=== PATIENT | female | born 1940 | race American Indian/Alaskan Native ===

== ENCOUNTER 2017-06-29 06:39 | Inpatient (IN) | payer MEDICARE ==
[2017-06-29] MEDS ORDERED: NACL 0.9% 500 ML 500 ML IV SCH (08:00)
[2017-06-29] MEDS ORDERED: CALAN ONE (08:16)
[2017-06-29] MEDS ORDERED: HEPARIN 10,000 UNITS/10 ML ONE (08:16)
[2017-06-29] MEDS ORDERED: XYLOCAINE 2% INFILTRATI ONE (08:16)
[2017-06-29] MEDS ORDERED: HEPARIN/NS 5000 UNIT/500ML(CATH LAB) 1,000 ML IR ONE (08:16)
[2017-06-29] MEDS ORDERED: NITROGLYCERIN SYRINGE 0 ML ONE (08:17)
[2017-06-29] MEDS ORDERED: VERSED ONE (08:18)
[2017-06-29] MEDS ORDERED: SUBLIMAZE ONE (08:18)
[2017-06-29] MEDS: APRESOLINE ONE ×2 (09:07→09:20)
[2017-06-29] MEDS ORDERED: NACL 0.9% 50 ML ONE (09:10)
[2017-06-29] MEDS ORDERED: WATER FOR INJ (PF) 10 ML ONE (09:11)
[2017-06-29] MEDS: ANGIOMAX IV ONE ×2 (09:16→09:21)
[2017-06-29] MEDS ORDERED: NORMODYNE IV ONE (09:28)
[2017-06-29] MEDS ORDERED: PLAVIX ONE (09:49)
[2017-06-29] MEDS ORDERED: ALUM-MAG HYDROX-SIMETH 200-200-20MG/5ML ONE ×2 (09:54→16:34)
[2017-06-29] MEDS ORDERED: ZOFRAN IV PRN (09:56)
[2017-06-29] MEDS ORDERED: NON-FORMULARY (Enalapril Maleate [Vasotec] 20 MG) PO SCH (10:00)
[2017-06-29] MEDS ORDERED: NACL 0.9% 1000 ML 1,000 ML IV SCH (10:00)
[2017-06-29] MEDS ORDERED: NON-FORMULARY (Esomeprazole Magnesium [Nexium] 20 MG) PO SCH (10:00)
[2017-06-29] MEDS ORDERED: D50W (25GM) Syringe IV PRN (10:01)
--- NOTE | 2017-06-29 10:22 | Cardiac Catherization Report ---
PROCEDURE: Peripheral angiogram with SALES ASSOCIATE FISHING of the left SFA. CLINICAL CONFIRMATION: This is a 77-year-old -[place] female with hypertension, diabetes, cholesterol, insulin-dependent, has been having claudication symptoms refractory to medical therapy with ultrasound shows monophasic flow in bilateral SFAs. The patient with profound left leg claudication more than the right. Moderate sedation was performed. Moderate sedation start time was 8:55 and finish at 9:55, so 60 minutes of moderate supervised sedation, 0.5 mg of Versed given, 25 mcg of fentanyl was given. PROCEDURE DETAILS: Peripheral angiogram was done via the right common femoral artery, sterile technique, local anesthesia, 5-Malawian groin sheath inserted. Using a rim catheter, did a peripheral angiogram showed left common iliac, external iliac, and internal iliac and AUTOMOBILE SALES CONSULTANT patent. I then used Advantage wire and placed a catheter in the AUTOMOBILE SALES CONSULTANT and angiogram revealed left profunda patent, left SFA proximal and distal diffuse with focal areas of 80% noted. Popliteal patent with single vessel runoff. Peroneal, anterior tibial and posterior tibial 100%. Using the same rim catheter, right common iliac patent, right external iliac patent, right internal iliac patent, right SFA, proximal, mid patent, distal narrowed down to 90% at the adductor canal. Right popliteal patent with single vessel runoff, peroneal and posterior tibial and anterior tibial both 100%, so SALES ASSOCIATE FISHING of the left SFA using over the rim catheter was taken off and over the Advantage wire, placed the destination 7-Malawian 45 cm into the left common femoral artery. Then, ballooned with a drug coating balloon, IN.PACT Admiral 5.0 x 150 from proximally, distally and inflated at 10 atmospheres for 3 minutes. Repeat angiogram showed good angiographic result, reduced stenosis less than 10% with no significant dissection noted and reduced stenosis from 80% down to less than 10% with increased flow into the peroneal artery. Multiple angiogram confirmed good angiographic result. A 7-Malawian distal sheath was removed over wire and 7-Malawian groin sheath sewn in. No hematoma, no bleeding. SUMMARY: 1. Successful SALES ASSOCIATE FISHING of the left SFA proximally and distally with a drug-coated balloon 6.0 x 150 at 10 atmospheres, patient has single vessel runoff, peroneal is patent with anterior tibial, posterior tibial, both 100%. 2. Bilateral common iliacs patent, bilateral internal and external iliacs patent. 3. Right SFA proximal and mid SFA patent, but distally 90% with single vessel runoff, peroneal is patent, with anterior tibial and posterior tibial 100%. 4. Post-SALES ASSOCIATE FISHING care and continue dual antiplatelet therapy and we will consider SALES ASSOCIATE FISHING of the right SFA if symptomatic. JOB# [id number] THANG/DONNA VALENZUELA
[2017-06-29] MEDS ORDERED: APRESOLINE IV PRN (10:29)
[2017-06-29] MEDS ORDERED: ULTRAM ONE ×2 (11:01→11:38)
[2017-06-29] MEDS ORDERED: TYLENOL PO PRN (11:30)
[2017-06-29] MEDS ORDERED: ULTRAM PO PRN (11:30)
[2017-06-29] MEDS ORDERED: HumaLOG SUB-Q ONE (11:44)
[2017-06-29] MEDS: HumaLOG SUB-Q SCH ×2 (11:48→22:50)
[2017-06-29] MEDS: BABY ASPIRIN PO SCH (15:02)
[2017-06-29] MEDS ORDERED: APRESOLINE ONE (15:46)
[2017-06-29] MEDS: PROTONIX PO SCH (16:11)
[2017-06-29] MEDS ORDERED: ALUM-MAG HYDROX-SIMETH 200-200-20MG/5ML PO PRN (16:29)
[2017-06-29 17:05] LABS: Creatine Kinase MB 2.4 ng/mL (0.0-4.0)
[2017-06-29] MEDS: ALDACTONE PO SCH (18:21)
[2017-06-29] MEDS: THALITONE PO SCH (18:22)
[2017-06-29] MEDS: ZESTRIL PO SCH ×2 (18:23→22:49)
[2017-06-29] MEDS ORDERED: LANTUS SUB-Q SCH (22:00)
[2017-06-29] MEDS ORDERED: NON-FORMULARY (Insulin Glargine,Hum.Rec.Anlog [Lantus Solostar] 50 UNITS) SQ SCH (22:00)
[2017-06-30 05:49] LABS: Basophils % (Auto) 0.7 % (0.0-1.8); Eosinophils # (Auto) 0.2 K/mm3 (0.0-0.4); Eosinophils % (Auto) 3.5 % (0.0-4.3); Hematocrit 32.8 % (30.3-42.9); Hemoglobin 11.2 gm/dl (10.1-14.3); Lymphocytes # (Auto) 1.8 K/mm3 (1.2-5.4); Lymphocytes % (Auto) 29.6 % (13.4-35.0); Mean Corpuscular HGB Conc 34 % (30-34); Mean Corpuscular Hemoglobin 28 pg (28-32); Mean Corpuscular Volume 82 fl (79-97); Monocytes # (Auto) 0.5 K/mm3 (0.0-0.8); Monocytes % (Auto) 7.4 % (0.0-7.3); Platelet Count 234 K/mm3 (140-440); Red Blood Count 3.98 M/mm3 (3.65-5.03); Red Cell Distribution Width 13.8 % (13.2-15.2)
[2017-06-30 06:08] LABS: Calcium 8.9 mg/dL (8.4-10.2)
[2017-06-30] MEDS: AMARYL PO SCH ×2 (08:01→09:25)
[2017-06-30] MEDS: HumaLOG SUB-Q SCH ×2 (08:01→08:03)
[2017-06-30] MEDS: ALDACTONE PO SCH (09:25)
[2017-06-30] MEDS: BABY ASPIRIN PO SCH (09:26)
[2017-06-30] MEDS: PROTONIX PO SCH (09:27)
[2017-06-30] MEDS: ZESTRIL PO SCH (09:27)
[2017-06-30] MEDS: THALITONE PO SCH (09:27)
[2017-06-30] MEDS ORDERED: PLAVIX PO SCH (10:00)
[2017-06-30] MEDS ORDERED: PLETAL PO SCH (10:00)
--- NOTE | 2017-06-30 11:07 | Short Stay Summary ---
<SUE TENORIO - Last Filed: 06/30/17 11:03> Short Stay Documentation Date of service: 06/30/17 - History H&P: obtained from office - Allergies and Medications Current Medications: Allergies No Known Allergies Allergy (Unverified 06/29/17 06:39) Home Medications Medication Instructions Recorded Confirmed Last Taken Type Aspirin EC [Aspirin Enteric Coated 81 mg PO QDAY 06/29/17 06/29/17 06/28/17 History TAB] 81mg Chlorthalidone 25 mg PO DAILY 06/29/17 06/29/17 06/28/17 History 25mg Cilostazol [Pletal] 100 mg PO BID 06/29/17 06/29/17 06/28/17 History 100mg Enalapril Maleate [Vasotec] 20 mg PO BID 06/29/17 06/29/17 06/28/17 History 20mg Esomeprazole Magnesium [Nexium] 20 mg PO DAILY 06/29/17 06/29/17 06/28/17 History 20mg Glimepiride [Amaryl] 4 mg PO BID 06/29/17 06/29/17 06/28/17 History 4mg Insulin Aspart [NovoLOG Flexpen] 12 - 17 units SQ TID 06/29/17 06/29/17 History 15units Insulin Glargine,Hum.rec.anlog 50 units SQ HS 06/29/17 06/29/17 06/27/17 History [Lantus Solostar] 50units Spironolactone [Aldactone] 25 mg PO QDAY 06/29/17 06/29/17 06/28/17 History 25mg Active Medications Acetaminophen (Tylenol) 650 mg PO Q4H PRN PRN Reason: Pain MILD(1-3)/Fever >100.5/ZHENG Al Hydrox/Mg Hydrox/Simethicone (Alum-Mag Hydrox-Simeth [id number]/5ml) 15 ml PO Q4H PRN PRN Reason: Indigestion Last Admin: 06/29/17 16:36 Dose: 15 ml Aspirin (Baby Aspirin) 81 mg PO QDAY [facility] Last Admin: 06/30/17 09:26 Dose: 81 mg Chlorthalidone (Thalitone) 25 mg PO DAILY [facility] Last Admin: 06/30/17 09:27 Dose: 25 mg Cilostazol (Pletal) 100 mg PO BID [facility] Last Admin: 06/30/17 09:27 Dose: Not Given Clopidogrel Bisulfate (Plavix) 75 mg PO QDAY [facility] Last Admin: 06/30/17 09:26 Dose: 75 mg Dextrose (D50w (25gm) Syringe) 50 ml IV PRN PRN PRN Reason: Hypoglycemia Glimepiride (Amaryl) 4 mg PO BIDDIAB [facility] Last Admin: 06/30/17 09:25 Dose: 4 mg Hydralazine HCl (Apresoline) 10 mg IV Q4HR PRN PRN Reason: Hypertension Last Admin: 06/29/17 15:48 Dose: 10 mg Insulin Glargine (Lantus) 50 units SUB-Q QHS [facility] Last Admin: 06/29/17 22:50 Dose: 50 units Insulin Human Lispro (Humalog) 0 unit SUB-Q ACHS [facility]; Protocol Last Admin: 06/30/17 08:03 Dose: Not Given Lisinopril (Zestril) 20 mg PO BID [facility] Last Admin: 06/30/17 09:27 Dose: 20 mg Ondansetron HCl (Zofran) 4 mg IV Q8H PRN PRN Reason: N/V unrelieved by Regmohinder Pantoprazole Sodium (Protonix) 20 mg PO QDAY [facility] Last Admin: 06/30/17 09:27 Dose: 20 mg Spironolactone (Aldactone) 25 mg PO QDAY [facility] Last Admin: 06/30/17 09:25 Dose: 25 mg Tramadol HCl (Ultram) 50 mg PO Q4H PRN PRN Reason: Pain, Mild (1-3) Last Admin: 06/29/17 11:00 Dose: 50 mg - Physical exam General appearance: no acute distress Integumentary: no rash, no growths, no abnormal pigmentation HEENT: Atraumatic, PERRLA Lungs: Clear to auscultation Heart: Regular rate, Normal S1, Normal S2 Extremities: no ischemia, pulses intact, pulses symmetrical Neurological: Normal gait - Brief post op/procedure progress note Date of procedure: 06/29/17 Pre-op diagnosis: PAD Post-op diagnosis: same Procedure: peripheral angiogram with EDGING SUPERVISOR of the left SFA - see dictated cath report Anesthesia: local Estimated blood loss: none Condition: stable - Disposition Condition at discharge: Stable Disposition: [id number] TO HOME OR SELFCARE - Discharge Diagnoses (1) PAD (peripheral artery disease) Status: Chronic (2) HTN (hypertension) Status: Chronic (3) Hyperlipidemia Status: Chronic (4) Diabetes Status: Chronic Short Stay Discharge Plan Activity: advance as tolerated Diet: low fat, low cholesterol, low salt Wound: open to air, keep clean and dry, per your surgeon's advice Follow up with: PRIMARY MD TAB [Primary Care Provider] - 7 Days LUKASZ HUBBARD MD [Staff Physician] - 7 Days (07/26/2017 @ 10:30AM) Prescriptions: Clopidogrel [Plavix] 75 mg PO QDAY #30 tablet <LUKASZ HUBBARD - Last Filed: 07/01/17 10:21> Short Stay Documentation - Allergies and Medications Current Medications: Allergies No Known Allergies Allergy (Unverified 06/29/17 06:39) Home Medications Medication Instructions Recorded Confirmed Last Taken Type Aspirin EC [Aspirin Enteric Coated 81 mg PO QDAY 06/29/17 06/29/17 06/28/17 History TAB] 81mg Chlorthalidone 25 mg PO DAILY 06/29/17 06/29/17 06/28/17 History 25mg Enalapril Maleate [Vasotec] 20 mg PO BID 06/29/17 06/29/17 06/28/17 History 20mg Esomeprazole Magnesium [Nexium] 20 mg PO DAILY 06/29/17 06/29/17 06/28/17 History 20mg Glimepiride [Amaryl] 4 mg PO BID 06/29/17 06/29/17 06/28/17 History 4mg Insulin Aspart [NovoLOG Flexpen] 12 - 17 units SQ TID 06/29/17 06/29/17 History 15units Insulin Glargine,Hum.rec.anlog 50 units SQ HS 06/29/17 06/29/17 06/27/17 History [Lantus Solostar] 50units Spironolactone [Aldactone] 25 mg PO QDAY 06/29/17 06/29/17 06/28/17 History 25mg Aspirin [Aspirin BABY CHEW TAB] 81 mg PO QDAY tab.chew 06/30/17 Unknown Rx Clopidogrel [Plavix] 75 mg PO QDAY #30 tablet 06/30/17 Unknown Rx - Hospital course Hospital course: pt had captain/airline pilot of left sfa with dcb 5.0 x 150 mm and pt states claudication has improved ,. pt had chest pain in afternoon resolved with ppi and maloox, probably gi and labs stable in am was discharged and no further chest pain noted. - Discharge Diagnoses (1) Claudication of left lower extremity Status: Acute (2) Chest pain at rest Status: Acute (3) Diabetes Status: Chronic Qualifiers: Diabetes mellitus type: type 1 Diabetes mellitus complication status: with circulatory complication Diabetes mellitus complication detail: with peripheral angiopathy without gangrene Qualified Code(s): E10.51 - Type 1 diabetes mellitus with diabetic peripheral angiopathy without gangrene (4) HTN (hypertension) Status: Chronic (5) Hyperlipidemia Status: Chronic (6) PAD (peripheral artery disease) Status: Chronic
[2017-06-30 12:40] VITALS: BP 171/64
== END 2017-06-30 13:33 | disposition home or self-care (01) | DRG 253 ==
LOC: CATHLABREC 06:39 → 4A 09:56
PROVIDERS: ADMIT Internal Medicine; ATTEND Internal Medicine
PROC: 047L3Z1 Dilation of Left Femoral Artery using Drug-Coated Balloon, Percutaneous Approach (ICD-10-PCS; principal; 2017-06-29)
PROC: B41G1ZZ Fluoroscopy of Left Lower Extremity Arteries using Low Osmolar Contrast (ICD-10-PCS; 2017-06-29)
DX: I70.212 Atherosclerosis of native arteries of extremities with intermittent claudication, left leg (principal); I50.32 Chronic diastolic (congestive) heart failure; E11.51 Type 2 diabetes mellitus with diabetic peripheral angiopathy without gangrene; E78.5 Hyperlipidemia, unspecified; I11.0 Hypertensive heart disease with heart failure; K21.9 Gastro-esophageal reflux disease without esophagitis; Z79.82 Long term (current) use of aspirin; Z79.899 Other long term (current) drug therapy; Z79.4 Long term (current) use of insulin; Z90.710 Acquired absence of both cervix and uterus
CPT/HCPCS: 36415; 37224; 80048; 82550; 82553; 82962; 84484; 85025; 85347; 93005; 93010; 96372; 96374; C1769; C1887; C2623; J0360; J0583; J1644; J1815; J2250; J3010; J7030; J7040; Q9967

== ENCOUNTER 2017-11-29 20:35 | Observation (INO) | payer MEDICARE ==
[2017-11-29] MEDS ORDERED: ASPIRIN PO ONE (20:57)
[2017-11-29 21:18] LABS: Basophils # (Auto) 0.1 K/mm3 (0.0-0.1); Basophils % (Auto) 1.2 % (0.0-1.8); Eosinophils # (Auto) 0.2 K/mm3 (0.0-0.4); Eosinophils % (Auto) 3.9 % (0.0-4.3); Hematocrit 36.6 % (30.3-42.9); Hemoglobin 12.7 gm/dl (10.1-14.3); Lymphocytes % (Auto) 32.2 % (13.4-35.0); Mean Corpuscular HGB Conc 35 % (30-34); Mean Corpuscular Hemoglobin 29 pg (28-32); Mean Corpuscular Volume 84 fl (79-97); Monocytes # (Auto) 0.5 K/mm3 (0.0-0.8); Monocytes % (Auto) 7.5 % (0.0-7.3); Platelet Count 244 K/mm3 (140-440); Red Blood Count 4.38 M/mm3 (3.65-5.03); Red Cell Distribution Width 14.1 % (13.2-15.2)
[2017-11-29] MEDS ORDERED: NITROSTAT SL PRN (22:24)
[2017-11-29] MEDS ORDERED: APRESOLINE IV ONE (22:24)
[2017-11-29] MEDS ORDERED: NACL 0.9% 500 ML 500 ML IV ONE (22:24)
--- NOTE | 2017-11-29 22:25 | Emergency Department Report ---
ED Chest Pain HPI - General Chief Complaint: Chest Pain Stated Complaint: CHEST PAIN Time Seen by Provider: 11/29/17 22:15 Source: patient, RN notes reviewed, old records reviewed Mode of arrival: Ambulatory Limitations: No Limitations - History of Present Illness Initial Comments: Cardiology: Dr Cabezas. Past medical history: Hypertension, diabetes, cholesterol, peripheral artery disease, status post angiography to the lower extremities June 2017. This is a pleasant 77-year-old female who is not known to this provider previously, who presents to the ER with a complaint of intermittent left-sided chest pain, with associated left arm numbness, for the past 2 days. Her symptoms wax and wane, and did not have exacerbating or relieving factors. The patient denies DVT, pulmonary embolus risk factors, she denies hematemesis and bright red blood per rectum, she denies extremity weakness, midline neck pain, lateral or bowel retention, incontinence, and has chronic shortness of breath which is not a new, worsening or different. She denies vomiting, diaphoresis and reports that she is pain-free at this time. MD Complaint: chest pain, other -: Gradual, days(s) Onset: during rest Pain Location: substernal, left chest Pain Radiation: LUE Severity: mild Quality: aching Consistency: intermittent Improves With: nothing Worsens With: nothing Aspirin use within the Past 7 Days: (1) Yes - Related Data Home Medications Medication Instructions Recorded Confirmed Last Taken Chlorthalidone 25 mg PO DAILY 06/29/17 11/29/17 06/28/17 25mg Enalapril Maleate [Vasotec] 20 mg PO BID 06/29/17 11/29/17 06/28/17 20mg Glimepiride [Amaryl] 4 mg PO BID 06/29/17 11/29/17 06/28/17 4mg Insulin Aspart [NovoLOG Flexpen] 12 - 17 units SQ TID 06/29/17 11/29/17 06/28/17 15units Insulin Glargine,Hum.rec.anlog 53 units SQ HS 06/29/17 11/29/17 06/27/17 [Lantus Solostar] 50units Spironolactone [Aldactone] 25 mg PO QDAY 06/29/17 11/29/17 06/28/17 25mg Previous Rx's Medication Instructions Recorded Last Taken Type Aspirin [Aspirin BABY CHEW TAB] 81 mg PO QDAY tab.chew 06/30/17 Unknown Rx Clopidogrel [Plavix] 75 mg PO QDAY #30 tablet 06/30/17 Unknown Rx Allergies Allergy/AdvReac Type Severity Reaction Status Date / Time No Known Allergies Allergy Unverified 06/29/17 06:39 Heart Score - HEART Score History: Slightly suspicious EKG: Non-specific Age: > 65 Risk factors: > 3 risk factors or hx of atherosclerotic disease Troponin: < normal limit HEART Score: 5 - Critical Actions Critical Actions: 4-6 pts:12-16.6% risk of adverse cardiac event. Should be admitted ED Review of Systems ROS: Stated complaint: CHEST PAIN Other details as noted in HPI Comment: All other systems reviewed and negative ED Past Medical Hx - Past Medical History Hx Hypertension: Yes Hx Congestive Heart Failure: Yes Hx Diabetes: Yes Hx GERD: Yes - Surgical History Additional Surgical History: tubiligation, stent LLL - Social History Smoking Status: Never Smoker Substance Use Type: None - Medications Home Medications: Home Medications Medication Instructions Recorded Confirmed Last Taken Type Chlorthalidone 25 mg PO DAILY 06/29/17 11/29/17 06/28/17 History 25mg Enalapril Maleate [Vasotec] 20 mg PO BID 06/29/17 11/29/17 06/28/17 History 20mg Glimepiride [Amaryl] 4 mg PO BID 06/29/17 11/29/17 06/28/17 History 4mg Insulin Aspart [NovoLOG Flexpen] 12 - 17 units SQ TID 06/29/17 11/29/17 History 15units Insulin Glargine,Hum.rec.anlog 53 units SQ HS 06/29/17 11/29/17 06/27/17 History [Lantus Solostar] 50units Spironolactone [Aldactone] 25 mg PO QDAY 06/29/17 11/29/17 06/28/17 History 25mg Aspirin [Aspirin BABY CHEW TAB] 81 mg PO QDAY tab.chew 06/30/17 11/29/17 Unknown Rx Clopidogrel [Plavix] 75 mg PO QDAY #30 tablet 06/30/17 11/29/17 Unknown Rx ED Physical Exam - General Limitations: No Limitations General appearance: alert, in no apparent distress - Head Head exam: Present: atraumatic, normocephalic - Eye Eye exam: Present: normal appearance, EOMI. Absent: nystagmus - ENT ENT exam: Present: normal exam, normal orophraynx, mucous membranes moist, normal external ear exam - Neck Neck exam: Present: normal inspection, full ROM. Absent: tenderness, meningismus - Respiratory Respiratory exam: Present: normal lung sounds bilaterally. Absent: respiratory distress - Cardiovascular Cardiovascular Exam: Present: regular rate, normal rhythm, normal heart sounds. Absent: bradycardia, tachycardia, irregular rhythm, systolic murmur, diastolic murmur, rubs, gallop - GI/Abdominal GI/Abdominal exam: Present: soft, normal bowel sounds. Absent: distended, tenderness, guarding, rebound, rigid, pulsatile mass - Extremities Exam Extremities exam: Present: normal inspection, full ROM, normal capillary refill , other (2+ pulses noted in the bilateral upper extremities. 1+ pulses noted in the bilateral lower extremities. Muscular compartments soft, there is no long bony tenderness, there is no redness, pus or streaking.). Absent: tenderness, joint swelling, calf tenderness - Back Exam Back exam: Present: normal inspection - Neurological Exam Neurological exam: Present: alert, oriented X3, CN II-XII intact, normal gait, other (Extraocular movements intact. Tongue midline. No facial droop. Facial sensation intact to light touch in the V1, V2, V3 distribution bilaterally. 5 and 5 strength in 4 extremities.. Sensation is intact to light touch in 4 extremities.). Absent: motor sensory deficit - Psychiatric Psychiatric exam: Present: normal affect, normal mood - Skin Skin exam: Present: warm, dry, intact, normal color. Absent: rash ED Course Vital Signs 11/29/17 11/29/17 11/30/17 20:53 22:25 00:05 Temperature 97.4 F L 97.9 F Pulse Rate 70 65 64 Respiratory 18 20 20 Rate Blood Pressure 217/88 Blood Pressure 175/85 180/80 [Right] O2 Sat by Pulse 98 98 98 Oximetry - Reevaluation(s) Reevaluation #1: 11/29/17 22:47 Differential diagnosis, including without limited to: Cervical radiculopathy, aortic dissection, pulmonary embolus, acute coronary syndrome, GERD, gastritis, hiatal hernia, pneumonia Assessment and plan: 77-year-old female with multiple vascular risk factors and chest pain, I highly suspect cervical radiculopathy as the principal diagnosis. However given her first front of chest pain as well as shortness of breath, as well as markedly elevated blood pressure, we will admit the patient to the hospital for cardiac risk stratification. A CT angiogram of the chest is pending, repeat blood pressure in the 170s and we will therefore withhold hydralazine, she is pain-free at this time, afebrile, and in no distress, pleasant, calm and cooperative. Case discussed with covering shredding machine operator, Dr. Migdalia Mott, who agrees with plan of management and agrees to have patient seen and evaluated by cardiology in the morning to assist in deciding optimal plan for cardiac risk medication. Reevaluation #2: 11/30/17 00:13 CT scan of the chest was negative for acute disease. Dr. Christine, the hospital physician accepted the patient to the medical service for cardiac risk stratification. CHRISS score - Chriss Score Age > 65: (1) Yes Aspirin use within the Past 7 Days: (1) Yes 3 or more CAD Risk Factors: (1) Yes 2 or more Angina events in past 24 hrs: (0) No Known CAD with more than 50% Stenosis: (0) No Elevated Cardiac Markers: (0) No ST Deviation Greater than 0.5mm: (0) No CHRISS Score: 3 ED Medical Decision Making - Lab Data Result diagrams: 11/29/17 21:04 11/29/17 21:04 Vital Signs 11/29/17 20:53 Temperature 97.4 F L Pulse Rate 70 Respiratory 18 Rate Blood Pressure 217/88 O2 Sat by Pulse 98 Oximetry Lab Results 11/29/17 11/29/17 Range/Units 21:04 21:04 WBC 6.1 (4.5-11.0) K/mm3 RBC 4.38 (3.65-5.03) M/mm3 Hgb 12.7 (10.1-14.3) gm/dl Hct 36.6 (30.3-42.9) % MCV 84 (79-97) fl MCH 29 (28-32) pg MCHC 35 H (30-34) % RDW 14.1 (13.2-15.2) % Plt Count 244 (140-440) K/mm3 Lymph % (Auto) 32.2 (13.4-35.0) % [place] % (Auto) 7.5 H (0.0-7.3) % Eos % (Auto) 3.9 (0.0-4.3) % Baso % (Auto) 1.2 (0.0-1.8) % Lymph # 2.0 (1.2-5.4) K/mm3 [place] # 0.5 (0.0-0.8) K/mm3 Eos # 0.2 (0.0-0.4) K/mm3 Baso # 0.1 (0.0-0.1) K/mm3 Seg Neutrophils % 55.2 (40.0-70.0) % Seg Neutrophils # 3.4 (1.8-7.7) K/mm3 Sodium 135 L (137-145) mmol/L Potassium 4.4 (3.6-5.0) mmol/L Chloride 100.4 (98-107) mmol/L Carbon Dioxide 20 L (22-30) mmol/L Anion Gap 19 mmol/L BUN 23 H (7-17) mg/dL Creatinine 1.1 (0.7-1.2) mg/dL Estimated GFR 58 ml/min BUN/Creatinine Ratio 21 % Glucose 100 (65-100) mg/dL Calcium 10.3 H (8.4-10.2) mg/dL Troponin T < 0.010 (0.00-0.029) ng/mL - EKG Data -: EKG Interpreted by Hi - EKG Data When compared to previous EKG there are: no significant change 11/29/17 22:47 Normal sinus, 67 bpm, normal axis, normal intervals, motion artifact, not morphologically consistent with an ST elevation myocardial infarction - Radiology Data Radiology results: pending Critical care attestation.: If time is entered above; I have spent that time in minutes in the direct care of this critically ill patient, excluding procedure time. ED Disposition Clinical Impression: HTN (hypertension), Chest pain at rest Disposition: OP ADMIT IP TO THIS HOSP Is pt being admited?: Yes Condition: Good Instructions: Chest Pain (ED), Hypertension (ED)
[2017-11-29 22:46] LABS: BUN/Creatinine Ratio 21; Blood Urea Nitrogen 23 mg/dL (7-17); Calcium 10.3 mg/dL (8.4-10.2); Hemolysis Index 9
[2017-11-29] MEDS ORDERED: NACL 0.9% 250ML 250 ML IV ONE (23:10)
[2017-11-29] MEDS ORDERED: ASPIRIN ONE (23:10)
--- NOTE | 2017-11-30 00:10 | Cat Scan Report ---
FINAL REPORT PROCEDURE: CT ANGIO CHEST TECHNIQUE: Computerized tomographic angiography of the chest was performed after the IV injection of iodinated nonionic contrast including image processing. The image data was postprocessed using 2-dimensional multiplanar reformatted (MPR) and 3-dimensional (MIP and/or volume rendered) techniques. HISTORY: cp htn COMPARISON: No prior studies are available for comparison. FINDINGS: Bilateral pulmonary arteries and their branches demonstrate normal opacification without filling defects. Aorta is of normal caliber without evidence of dissection. Bilateral hilar structures are within normal limits. There is no lymphadenopathy. Thyroid demonstrates normal size and density. Cardiac size is within normal limits. Bilateral lungs and pleural spaces are clear. Visualized upper abdominal structures are within normal limits. Vertebral height is normal. IMPRESSION: No evidence of pulmonary embolism. Aorta is normal No acute pulmonary process
--- NOTE | 2017-11-30 01:41 | History and Physical Report ---
History of Present Illness Date of examination: 11/30/17 History of present illness: 77-year-old woman with a history of hypertension, peripheral vascular disease, hypertension, CHF, GERD comes emergency room with complaints of chest pain. Pain is in the epigastric area which she describes as a achy pain, intermittent every few seconds, intensity 5/10, no radiation, cannot identify exacerbating or remitting factors. No shortness of breath, nausea vomiting, diaphoresis or palpitation Review of systems Constitutional: no weight loss, chills, fever Ears, eyes, nose, mouth and throat: no nasal congestion, no nasal discharge, no sinus pressure, no vision change, no red eye. Neck: No neck pain or rigidity. Cardiovascular: no palpitations Respiratory: no cough Gastrointestinal: no abdominal pain hematochezia Genitourinary : no frequency , no hematuria Musculoskeletal: no joint swelling or muscle ache Integumentary: no rash, no pruritis Neurological: no parathesias, no numbness, no focal weakness Endocrine: no cold or heat intolerance, no polyuria or polydipsia Hematologic/Lymphatic: no easy bruising, no easy bleeding, no gland swelling Allergic/Immunologic: no urticaria, no angioedema. PAST MEDICAL HISTORY: hypertension, peripheral vascular disease, hypertension, CHF, GERD PAST SURGICAL HISTORY: Tubal ligation SOCIAL HISTORY: no alcohol, no drugs, no tobacco FAMILY HISTORY: Hypertension Medications and Allergies Allergies Allergy/AdvReac Type Severity Reaction Status Date / Time No Known Allergies Allergy Unverified 06/29/17 06:39 Home Medications Medication Instructions Recorded Confirmed Last Taken Type Chlorthalidone 25 mg PO DAILY 06/29/17 11/29/17 06/28/17 History 25mg Enalapril Maleate [Vasotec] 20 mg PO BID 06/29/17 11/29/17 06/28/17 History 20mg Glimepiride [Amaryl] 4 mg PO BID 06/29/17 11/29/17 06/28/17 History 4mg Insulin Aspart [NovoLOG Flexpen] 12 - 17 units SQ TID 06/29/17 11/29/17 History 15units Insulin Glargine,Hum.rec.anlog 53 units SQ HS 06/29/17 11/29/17 06/27/17 History [Lantus Solostar] 50units Spironolactone [Aldactone] 25 mg PO QDAY 06/29/17 11/29/17 06/28/17 History 25mg Aspirin [Aspirin BABY CHEW TAB] 81 mg PO QDAY tab.chew 06/30/17 11/29/17 Unknown Rx Clopidogrel [Plavix] 75 mg PO QDAY #30 tablet 06/30/17 11/29/17 Unknown Rx Active Meds: Active Medications Nitroglycerin (Nitrostat) 0.4 mg SL .Q5MIN PRN PRN Reason: Chest Pain Exam - Physical Exam Narrative exam: Gen. appearance: Patient lying in bed, no apparent distress HEENT: Normocephalic, atraumatic, pupils equally round and reactive to light, extraocular movement intact, and no sclericterus,. No JVD or thyromegaly or nodule,neck supple, no carotid bruit ,mucous membranes moist, no exudate or erythema Heart: S1, S2, regular rate and rhythm Lungs: Clear bilaterally, breathing comfortable Abdomen: Positive bowel sounds, non-tender, nondistended, no organomegaly Extremity:no edema cyanosis, clubbing Skin: no rash, dry, warm Neuro: Oriented 3, cranial nerves II-12 intact, speech is fluent, motor and sensory intact - Constitutional Vitals: Temp Pulse Resp BP Pulse Ox 97.9 F 61 20 170/75 97 11/29/17 22:25 11/30/17 01:04 11/30/17 01:04 11/30/17 01:04 11/30/17 01:04 Results - Labs CBC & Chem 7: 11/29/17 21:04 11/29/17 21:04 Labs: Abnormal lab results 11/29/17 11/29/17 11/30/17 Range/Units 21:04 21:04 00:59 MCHC 35 H (30-34) % [place] % (Auto) 7.5 H (0.0-7.3) % Sodium 135 L (137-145) mmol/L Carbon Dioxide 20 L (22-30) mmol/L BUN 23 H (7-17) mg/dL POC Glucose 174 H (70-105) Calcium 10.3 H (8.4-10.2) mg/dL - Imaging and Cardiology EKG: image reviewed CT scan - chest: report reviewed Assessment and Plan Assessment Chest pain rule out ACS Hypertension Diabetes CHF, stable GERD Peripheral vascular disease Plan Admit to medicine Check cardiac enzymes, obtain stress this Continue outpatient medication, cardiology consult DVT prophylaxis
[2017-11-30] MEDS ORDERED: PROVENTIL IH PRN (03:17)
[2017-11-30] MEDS ORDERED: TYLENOL PO PRN (03:17)
[2017-11-30] MEDS ORDERED: ZOFRAN IV PRN (03:17)
[2017-11-30] MEDS ORDERED: SODIUM CHLORIDE FLUSH SYRINGE 10 ML IV PRN (03:17)
[2017-11-30] MEDS ORDERED: MORPHINE IV PRN (03:17)
[2017-11-30] MEDS ORDERED: APRESOLINE IV PRN (03:22)
[2017-11-30] MEDS ORDERED: NACL 0.45% 1000 ML 1,000 ML IV SCH (04:00)
[2017-11-30 05:51] LABS: Hematocrit 35.9 % (30.3-42.9); Mean Corpuscular HGB Conc 33 % (30-34); Mean Corpuscular Hemoglobin 28 pg (28-32); Mean Corpuscular Volume 85 fl (79-97); Platelet Count 227 K/mm3 (140-440); Red Blood Count 4.22 M/mm3 (3.65-5.03); Red Cell Distribution Width 14.2 % (13.2-15.2)
[2017-11-30 06:00] LABS: BUN/Creatinine Ratio 23; Blood Urea Nitrogen 23 mg/dL (7-17); Calcium 9.6 mg/dL (8.4-10.2); Hemolysis Index 24
[2017-11-30 06:34] LABS: Total Cells Counted 100
[2017-11-30 06:35] LABS: Platelet Estimate Consistent w Auto
--- NOTE | 2017-11-30 08:44 | Discharge Summary ---
Providers - Providers Date of Admission: 11/30/17 01:40 Date of discharge: 11/30/17 Attending physician: LAURA ROSS 11/29/17 22:24 Consult to Physician [CONS] Urgent Comment: Dr. Nair spoke with Dr. 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 She was admitted because bp was 217/88. Cardiac enzymes Troponin negative x 3 Chest pains, atypical, msk/arthritis related Accelerated hypertension with urgency GERD IDDM with uncontrolled BG Constipation with hemorrhoids, has GI appt tomorrow. Disposition: DC-01 TO HOME OR SELFCARE Time spent for discharge: 31 min Core Measure Documentation - Palliative Care Palliative Care/ Comfort Measures: Not Applicable - Core Measures Any of the following diagnoses?: none - VTE Discharge Requirements Deep Vein Thrombosis/Pulmonary Embolism Present on Admission: No Has pt received <5 days of overlap therapy or INR<2.0: No Anticoagulant overlap therapy prescribed at discharge: No Contraindication No Overlap Therapy order at DC: Not Indicated Exam - Constitutional Vitals: Temp Pulse Resp BP Pulse Ox 98.2 F 57 L 18 171/61 93 11/30/17 02:58 11/30/17 02:58 11/30/17 02:58 11/30/17 02:58 11/30/17 02:58 General appearance: Present: no acute distress - EENT Eyes: Present: PERRL ENT: hearing intact, clear oral mucosa - Neck Neck: Present: supple, normal ROM - Respiratory Respiratory: bilateral: CTA - Cardiovascular Rhythm: regular Heart Sounds: Present: S1 & S2 - Extremities Extremities: pulses intact - Abdominal General gastrointestinal: Present: soft, non-tender, non-distended, normal bowel sounds - Psychiatric Psychiatric: appropriate mood/affect, intact judgment & insight - Neurologic Neurologic: CNII-XII intact, moves all extremities Plan Activity: other (no strenous activity unless cleared by PCP) Diet: low salt, diabetic Special Instructions: record daily BP diary, record blood sugar diary (three times a day with meals and at bedtime) Follow up with: PRIMARY CARE, [Primary Care Provider] - 3-5 Days
--- NOTE | 2017-11-30 09:02 | Consultation ---
History of Present Illness Consult date: 11/30/17 Requesting physician: LIANE SINGH Consult reason: chest pain, hypertension History of present illness: The pt is a 77 YO female with a past medical history of HTN, HLP, DM, chronic DHF, GERD, PVD s/p HOSPICE HOME HEALTH AIDE of the left SFA by Dr. Conway in 06/2017. She is followed in our office by Dr. Cabezas. She presented with complaints of chest pain for 3-4 days prior to arrival. She describes the pain as an intermittent, nonexertional, left sided aching pain which sometimes radiates down her left arm. She also c/o neck pain with radiation down her left arm. She also reports SOB on exertion for 1 week prior to arrival. She denies any palpitations, n/v, diaphoresis, dizziness or syncope. Echo done 05/2017 showed EF 60-65%, grade 2 diastolic dysfunction. Past History Past Medical History: diabetes, hypertension, hyperlipidemia, other (s/p HOSPICE HOME HEALTH AIDE of the left SFA by Dr. Conway in 06/2017. ) Social history: denies: smoking (former, quit 20 years ago), alcohol abuse, prescription drug abuse Medications and Allergies Allergies Allergy/AdvReac Type Severity Reaction Status Date / Time No Known Allergies Allergy Unverified 06/29/17 06:39 Home Medications Medication Instructions Recorded Confirmed Last Taken Type Chlorthalidone 25 mg PO DAILY 06/29/17 11/29/17 06/28/17 History 25mg Enalapril Maleate [Vasotec] 20 mg PO BID 06/29/17 11/29/17 06/28/17 History 20mg Glimepiride [Amaryl] 4 mg PO BID 06/29/17 11/29/17 06/28/17 History 4mg Insulin Aspart [NovoLOG Flexpen] 12 - 17 units SQ TID 06/29/17 11/29/17 History 15units Insulin Glargine,Hum.rec.anlog 53 units SQ HS 06/29/17 11/29/17 06/27/17 History [Lantus Solostar] 50units Spironolactone [Aldactone] 25 mg PO QDAY 06/29/17 11/29/17 06/28/17 History 25mg Aspirin [Aspirin BABY CHEW TAB] 81 mg PO QDAY tab.chew 06/30/17 11/29/17 Unknown Rx Clopidogrel [Plavix] 75 mg PO QDAY #30 tablet 06/30/17 11/29/17 Unknown Rx Active Meds: Active Medications Acetaminophen (Tylenol) 650 mg PO Q4H PRN PRN Reason: Pain MILD(1-3)/Fever >100.5/ZHENG Albuterol (Proventil) 2.5 mg IH Q4HRT PRN PRN Reason: Shortness Of Breath Aspirin (Baby Aspirin) 81 mg PO QDAY MARTHA Clopidogrel Bisulfate (Plavix) 75 mg PO QDAY MARTHA Enoxaparin Sodium (Lovenox) 40 mg SUB-Q QDAY MARTHA Hydralazine HCl (Apresoline) 5 mg IV Q6H PRN PRN Reason: Hypertension Lisinopril (Zestril) 20 mg PO BID MARTHA Morphine Sulfate (Morphine) 2 mg IV Q4H PRN PRN Reason: Pain, Moderate (4-6) Nitroglycerin (Nitrostat) 0.4 mg SL .Q5MIN PRN PRN Reason: Chest Pain Ondansetron HCl (Zofran) 4 mg IV Q8H PRN PRN Reason: Nausea And Vomiting Sodium Chloride (Sodium Chloride Flush Syringe 10 Ml) 10 ml IV BID MARTHA Sodium Chloride (Sodium Chloride Flush Syringe 10 Ml) 10 ml IV PRN PRN PRN Reason: LINE FLUSH Review of Systems Constitutional: no weight loss, no weight gain, no fever, no chills, no sweats Ears, nose, mouth and throat: no ear pain, no nose pain, no sinus pressure, no sinus pain Cardiovascular: chest pain, dyspnea on exertion, high blood pressure, no orthopnea, no palpitations, no rapid/irregular heart beat, no edema, no syncope , no lightheadedness, no paroxysmal nocturnal dyspnea, no leg edema Respiratory: dyspnea on exertion, no cough, no congestion, no wheezing, no pain on inspiration Gastrointestinal: no abdominal pain, no nausea, no vomiting, no diarrhea, no constipation, no change in bowel habits Genitourinary Female: no pelvic pain, no flank pain, no dysuria, no urinary frequency, no urgency Integumentary: no rash, no pruritis, no redness, no sores, no wounds Neurological: no head injury, no paralysis, no weakness, no parathesias, no numbness, no tingling, no seizures, no syncope Psychiatric: no anxiety Endocrine: no cold intolerance, no heat intolerance Hematologic/Lymphatic: no easy bruising, no easy bleeding Allergic/Immunologic: no urticaria, no wheezing Physical Examination Vital Signs Temp Pulse Resp BP Pulse Ox 97.4 F L 70 18 217/88 98 11/29/17 20:53 11/29/17 20:53 11/29/17 20:53 11/29/17 20:53 11/29/17 20:53 General appearance: no acute distress HEENT: Positive: PERRL, Normocephaly, Mucus Membranes Moist Neck: Positive: neck supple, trachea midline Cardiac: Positive: Reg Rate and Rhythm, S1/S2 Lungs: Positive: clear to auscultation Neuro: Positive: Grossly Intact Abdomen: Positive: Soft. Negative: Tender Skin: Positive: Clear. Negative: Rash, Wound Musculoskeletal: No Pain Extremities: Absent: edema Results 11/30/17 04:10 11/30/17 04:10 CBC 11/29/17 11/30/17 Range/Units 21:04 04:10 WBC 6.1 6.3 (4.5-11.0) K/mm3 RBC 4.38 4.22 (3.65-5.03) M/mm3 Hgb 12.7 12.0 (10.1-14.3) gm/dl Hct 36.6 35.9 (30.3-42.9) % Plt Count 244 227 (140-440) K/mm3 Lymph # 2.0 Chief Psychologist (1.2-5.4) K/mm3 [place] # 0.5 Chief Psychologist (0.0-0.8) K/mm3 Eos # 0.2 Chief Psychologist (0.0-0.4) K/mm3 Baso # 0.1 Chief Psychologist (0.0-0.1) K/mm3 Comprehensive Metabolic Panel 11/29/17 11/30/17 Range/Units 21:04 04:10 Sodium 135 L 136 L (137-145) mmol/L Potassium 4.4 4.7 (3.6-5.0) mmol/L Chloride 100.4 103.7 (98-107) mmol/L Carbon Dioxide 20 L 20 L (22-30) mmol/L BUN 23 H 23 H (7-17) mg/dL Creatinine 1.1 1.0 (0.7-1.2) mg/dL Glucose 100 196 H (65-100) mg/dL Calcium 10.3 H 9.6 (8.4-10.2) mg/dL - Imaging and Cardiology Echo: report reviewed (05/2017 showed EF 60-65%, grade 2 diastolic dysfunction.) EKG: report reviewed, image reviewed EKG interpretations - Telemetry EKG Rhythm: Sinus Rhythm - EKG Sinus rhythms and dysrhythmias: sinus rhythm Assessment and Plan S/p lexiscan MPI stress test this AM which was negative for ischemia, EF 77%. Currently stable cardiac status. Pt may discharge home from cardiology standpoint. Consider workup for cervical radiculopathy per primary. Recommend pt follow up in our office with Dr. Cabezas within 1-2 weeks of hospital discharge ([phone]). The patient has been seen in conjunction with Dr. Andrews who agrees with the assessment and plan of care. - Patient Problems (1) Chest pain Current Visit: Yes Status: Acute (2) HTN (hypertension) Current Visit: Yes Status: Chronic (3) Diabetes Current Visit: Yes Status: Chronic Qualifiers: Diabetes mellitus type: type 1 Diabetes mellitus complication status: with circulatory complication Diabetes mellitus complication detail: with peripheral angiopathy without gangrene Qualified Code(s): E10.51 - Type 1 diabetes mellitus with diabetic peripheral angiopathy without gangrene (4) Hyperlipidemia Current Visit: Yes Status: Chronic (5) PVD (peripheral vascular disease) Current Visit: Yes Status: Chronic (6) GERD (gastroesophageal reflux disease) Current Visit: Yes Status: Chronic
[2017-11-30] MEDS ORDERED: PLAVIX PO SCH (10:00)
[2017-11-30] MEDS ORDERED: ZESTRIL PO SCH (10:00)
[2017-11-30] MEDS ORDERED: BABY ASPIRIN PO SCH (10:00)
[2017-11-30] MEDS ORDERED: LOVENOX SUB-Q SCH (10:00)
[2017-11-30] MEDS ORDERED: SODIUM CHLORIDE FLUSH SYRINGE 10 ML IV SCH (10:00)
[2017-11-30] MEDS ORDERED: LEXISCAN IV ONE (10:12)
[2017-11-30] MEDS ORDERED: ZOFRAN ONE (10:50)
[2017-11-30] MEDS ORDERED: AFLURIA QUAD 2018-2019 SYRINGE IM ONE (12:00)
[2017-11-30 12:38] VITALS: BP 158/58
--- NOTE | 2017-12-01 11:47 | Treadmill Report ---
FINDINGS: Resting perfusion images revealed homogeneous radioisotope activity. Left ventricular cavity was small. On post-Lexiscan, again there is homogeneous radioisotope activity throughout the myocardium. Gated scan revealed 77% of ejection fraction. No segmental motion abnormality noted. IMPRESSION: This test is negative for ischemia. JOB# [id number] SHRUTHI/NTS
== END 2017-11-30 16:30 | disposition home or self-care (01) ==
LOC: ED 20:35 → 4A 11-30 01:40
PROVIDERS: ADMIT Internal Medicine; ATTEND Internal Medicine
DX: R07.89 Other chest pain (principal); I11.0 Hypertensive heart disease with heart failure; I50.9 Heart failure, unspecified; K21.9 Gastro-esophageal reflux disease without esophagitis; I73.9 Peripheral vascular disease, unspecified; E11.9 Type 2 diabetes mellitus without complications
CPT/HCPCS: 36415; 71275; 78452; 80048; 82962; 84484; 85007; 85025; 90686; 93005; 93010; 93017; 96372; 96374; 99285; A9502; G0378; J1650; J2405; J2785; J7050; Q9967; J7040

== ENCOUNTER 2018-05-09 06:01 | Inpatient (IN) | payer MEDICARE ==
[2018-05-09 07:47] LABS: Basophils % (Auto) 0.6 % (0.0-1.8); Eosinophils # (Auto) 0.1 K/mm3 (0.0-0.4); Eosinophils % (Auto) 2.3 % (0.0-4.3); Hematocrit 37.8 % (30.3-42.9); Hemoglobin 12.6 gm/dl (10.1-14.3); Lymphocytes # (Auto) 1.8 K/mm3 (1.2-5.4); Lymphocytes % (Auto) 29.3 % (13.4-35.0); Mean Corpuscular HGB Conc 33 % (30-34); Mean Corpuscular Volume 84 fl (79-97); Monocytes # (Auto) 0.4 K/mm3 (0.0-0.8); Monocytes % (Auto) 6.4 % (0.0-7.3); Platelet Count 231 K/mm3 (140-440); Red Blood Count 4.49 M/mm3 (3.65-5.03); Red Cell Distribution Width 13.7 % (13.2-15.2)
[2018-05-09 07:57] LABS: INR 0.97 (0.87-1.13)
[2018-05-09] MEDS: NACL 0.9% 500 ML 500 ML IV SCH ×2 (08:00→08:54)
[2018-05-09] MEDS ORDERED: ECOTRIN PO ONE (08:00)
[2018-05-09 08:01] LABS: Calcium 9.4 mg/dL (8.4-10.2)
[2018-05-09] MEDS ORDERED: HEPARIN/NS 5000 UNIT/500ML(CATH LAB) 1,000 ML IR ONE (08:20)
[2018-05-09] MEDS ORDERED: XYLOCAINE 2% INFILTRATI ONE (08:21)
[2018-05-09] MEDS ORDERED: CALAN ONE (08:21)
[2018-05-09] MEDS ORDERED: NITROGLYCERIN SYRINGE 3 ML ONE (08:21)
[2018-05-09] MEDS ORDERED: VERSED ONE (08:21)
[2018-05-09] MEDS ORDERED: SUBLIMAZE ONE (08:22)
[2018-05-09] MEDS: HEPARIN 10,000 UNITS/10 ML ONE ×2 (09:05→09:09)
[2018-05-09] MEDS: APRESOLINE ONE ×2 (09:13→09:19)
[2018-05-09] MEDS: PLAVIX ONE ×2 (09:36→09:44)
[2018-05-09] MEDS: ALUM-MAG HYDROX-SIMETH 200-200-20MG/5ML ONE ×2 (09:36→09:44)
[2018-05-09] MEDS ORDERED: ULTRAM PO PRN (09:59)
[2018-05-09] MEDS ORDERED: NACL 0.9% 1000 ML 1,000 ML IV SCH (10:00)
[2018-05-09] MEDS ORDERED: ZOFRAN IV PRN (10:30)
[2018-05-09] MEDS: COREG PO SCH ×2 (11:38→21:34)
--- NOTE | 2018-05-09 11:55 | Cardiac Catherization Report ---
LEFT HEART CATHETERIZATION/PERCUTANEOUS CORONARY INTERVENTION PROCEDURES DONE BY: Jose C Conway MD ORDERING PHYSICIAN: Purnima Cabezas MD CLINICAL INFORMATION: This is a 78-year-old -Thai female with known peripheral vascular disease, has hypertension, hyperlipidemia who has been having exertional anginal pain Citizen Of [place] Angina Classification 3 despite being on aspirin, Plavix, beta-dexter, nitrates, here for a left heart catheterization. Procedure was done with moderate sedation, 0.5 mg Versed and 25 mcg of fentanyl. Total sedation time was 38 minutes, starting at 8:54 a.m., finished at 9:32 a.m. DESCRIPTION OF PROCEDURE: 1. Procedure was performed via the right radial artery, sterile technique, local anesthesia, 6-Bahamian radial sheath inserted. 2. RCA engaged with a JL3.5 catheter as it comes from the left cusp. It is a large dominant vessel, proximal is patent, mid focal 99%, distal is patent bifurcates into medium caliber PDA, PLV moderate tortuosity. 3. Left system engaged with JL3.5 catheter. Left main is large and patent, bifurcates into large LAD and is patent with mild luminal irregularities with moderate tortuosity. Diagonal 1 is a medium caliber vessel and it is patent. Circumflex and the medium to large caliber vessel, it is patent, bifurcates into a medium caliber OM1, OM2 with moderate to severe tortuosity. 4. LV gram done in INDIAN and DUMONT view shows normal LV function, EF 55-60%, LVEDP of 30 mmHg. LV was 209/30. Aortic is 214/73. No gradient across the aortic valve on pullback. PERCUTANEOUS CORONARY INTERVENTION OF RCA: 1. Engaged RCA with a JL 3.5 guiding catheter as it comes from the left cusp. 2. Able to cross the distal RCA with short run through wire. 3. Predilated with 2.5 x 12 mm balloon at 12 atmospheres. 4. Then stented the mid RCA with a drug-eluting Resolute Eliud 3.0 x 18 mm at 18 atmospheres. 5. Excellent angiographic result, good step up and step down noted proximally and distally. Good stent apposition, no dissection or perforation. 6. Coronary wire was removed, multiple angiograms, continued RADHA 3 flow with reduced stenosis of 0%. 7. A 6-Bahamian guiding catheter taken over guidewire, 6-Bahamian radial sheath was discontinued. Radial band applied. No hematoma, no bleeding. SUMMARY: 1. Successful PCI of the mid RCA with a drug-eluting Resolute Eliud 3.0 x 18 mm with difficult intervention as it comes from the left cusp, had to use a JL3.5 catheter. 2. Left main patent, LAD patent with mild luminal irregularities. Diagonal is patent. Circumflex is patent. OM1 and OM2 is patent with moderate to severe tortuosity. 3. Normal LV function. Continue him on post-PCI care. JOB# [id number] THANG/DONNA
[2018-05-09] MEDS ORDERED: D50W (25GM) Syringe IV PRN (12:02)
[2018-05-09] MEDS ORDERED: NACL 0.9% 1000 ML 1,000 ML ONE (16:31)
[2018-05-09] MEDS: HumaLOG SUB-Q SCH ×2 (18:07→18:18)
[2018-05-09] MEDS: AMARYL PO SCH ×2 (18:08→18:18)
[2018-05-09] MEDS: ZESTRIL PO SCH (21:34)
[2018-05-09] MEDS ORDERED: LANTUS SUB-Q SCH (22:00)
[2018-05-09] MEDS ORDERED: INSULIN GLARGINE HUM REC ANLOG 48 UNIT SQ SCH (22:00)
[2018-05-09] MEDS ORDERED: NON-FORMULARY (Enalapril Maleate [Vasotec] 20 MG) PO SCH (22:00)
[2018-05-10] MEDS: HumaLOG SUB-Q SCH ×2 (01:26→08:49)
--- NOTE | 2018-05-10 08:02 | Short Stay Summary ---
Short Stay Documentation Date of service: 05/10/18 - History H&P: obtained from office - Allergies and Medications Current Medications: Allergies No Known Allergies Allergy (Verified 05/09/18 07:00) Home Medications Medication Instructions Recorded Confirmed Last Taken Type Chlorthalidone 25 mg PO DAILY 06/29/17 05/09/18 05/08/18 History Enalapril Maleate [Vasotec] 20 mg PO BID 06/29/17 05/09/18 05/08/18 History Glimepiride [Amaryl] 4 mg PO BID 06/29/17 05/09/18 05/08/18 History Insulin Aspart [NovoLOG Flexpen] 12 - 17 units SQ TID 06/29/17 05/09/18 05/08/18 History Spironolactone [Aldactone] 25 mg PO QDAY 06/29/17 05/09/18 05/08/18 History Aspirin [Aspirin BABY CHEW TAB] 81 mg PO QDAY tab.chew 06/30/17 05/09/18 05/08/18 Rx AtorvaSTATin [Lipitor] 20 mg PO DAILY 05/09/18 05/09/18 05/08/18 History 20mg Carvedilol [Coreg] 6.25 mg PO BID 05/09/18 05/09/18 05/08/18 History Esomeprazole Magnesium [Heartburn 20 mg PO DAILY 05/09/18 05/09/18 05/08/18 History Treatment] Insulin Glargine,Hum.rec.anlog 48 units SQ HS 05/09/18 05/09/18 05/08/18 History [Lantus] Active Medications Aspirin (Baby Aspirin) 81 mg PO QDAY [facility] Atorvastatin Calcium (Lipitor) 20 mg PO QHS [facility] Last Admin: 05/09/18 21:34 Dose: 20 mg Documented by: Carvedilol (Coreg) 6.25 mg PO BID [facility] Last Admin: 05/09/18 21:34 Dose: 6.25 mg Documented by: Chlorthalidone (Thalitone) 25 mg PO DAILY [facility] Clopidogrel Bisulfate (Plavix) 75 mg PO QDAY [facility] Dextrose (D50w (25gm) Syringe) 50 ml IV PRN PRN PRN Reason: Hypoglycemia Glimepiride (Amaryl) 4 mg PO BIDDIAB [facility] Last Admin: 05/09/18 18:18 Dose: 4 mg Documented by: Insulin Glargine (Lantus) 48 units SUB-Q QHS [facility] Last Admin: 05/10/18 01:27 Dose: Not Given Documented by: Insulin Human Lispro (Humalog) 0 unit SUB-Q ACHS [facility]; Protocol Last Admin: 05/10/18 01:26 Dose: Not Given Documented by: Lisinopril (Zestril) 20 mg PO BID [facility] Last Admin: 05/09/18 21:34 Dose: 20 mg Documented by: Ondansetron HCl (Zofran) 4 mg IV Q8H PRN PRN Reason: N/V unrelieved by Reglan Last Admin: 05/09/18 10:16 Dose: 4 mg Documented by: Pantoprazole Sodium (Protonix) 20 mg PO QDAY MARTHA Spironolactone (Aldactone) 25 mg PO QDAY MARTHA Tramadol HCl (Ultram) 50 mg PO Q4H PRN PRN Reason: Pain, Mild (1-3) - Physical exam General appearance: no acute distress HEENT: PERRLA, EOMI Lungs: Clear to auscultation Breasts: deferred Heart: Normal S1, Normal S2 Gastrointestinal: normal Female Genitourinary: deferred Rectal Exam: deferred Extremities: no ischemia Neurological: Normal gait - Brief post op/procedure progress note Date of procedure: 05/09/18 Pre-op diagnosis: exertional angina Post-op diagnosis: other (post pci of rca) Procedure: Left heart cath via the right radial approach left main large and patent bifurcates into a large LAD that. Given mild luminal irregularities back no one patent circumflex large patent OM1 and OM to a medium caliber vessel patent with moderate tortuosity I see, left cusp mid 99% with medium caliber PDA PLV moderate tortuosity. Normal LV function with elevated left end-diastolic pressure. Successful PCI of the mid RCA with a drug-eluting resolute elizabeth 3.0 x 33 mm at 18 l[place] RAHDA-3 flow continued reduced stenosis to 0% Anesthesia: local Estimated blood loss: none Pathology: none - Hospital course Hospital course: 78-year-old patient with hypertension diabetes cholesterol has known peripheral vascular disease was having exertional angina symptoms [place] classification 3 despite beta dexter. Here for left heart cath.Left heart cath via the right radial approach left main large and patent bifurcates into a large LAD that. Given mild luminal irregularities back no one patent circumflex large patent OM1 and OM to a medium caliber vessel patent with moderate tortuosity I see, left cusp mid 99% with medium caliber PDA PLV moderate tortuosity. Normal LV function with elevated left end-diastolic pressure. Successful PCI of the mid RCA with a drug-eluting resolute elizabeth 3.0 x 33 mm at 18 l[place] RADHA-3 flow continued reduced stenosis to 0%. Patient was admitted for post-PCI and acute diastolic dysfunction because of elevated left end-diastolic pressure patient was treated with diuretics. Patient is walking without any chest pain shortness of breath has improved so will be discharged today - Disposition Condition at discharge: Good Disposition: DC-01 TO HOME OR SELFCARE - Discharge Diagnoses (1) CAD (coronary artery disease) Status: Acute Qualifiers: Coronary Disease-Associated Artery/Lesion type: [place] artery [place] vs. transplanted heart: [place] heart Associated angina: with unstable angina Qualified Code(s): I25.110 - Atherosclerotic heart disease of [place] coronary artery with unstable angina pectoris (2) Diastolic dysfunction with acute on chronic heart failure Status: Acute (3) Diabetes Status: Chronic Qualifiers: Diabetes mellitus type: type 1 Diabetes mellitus complication status: with circulatory complication Diabetes mellitus complication detail: with peripheral angiopathy without gangrene Qualified Code(s): E10.51 - Type 1 diabetes mellitus with diabetic peripheral angiopathy without gangrene (4) HTN (hypertension) Status: Chronic (5) Hyperlipidemia Status: Chronic (6) PAD (peripheral artery disease) Status: Chronic Short Stay Discharge Plan Activity: advance as tolerated Diet: low fat, low cholesterol, low salt, diabetic Wound: keep clean and dry Follow up with: SHELTON MÁRQUEZ DO [Primary Care Provider] - 7 Days
[2018-05-10 08:16] LABS: Basophils % (Auto) 0.6 % (0.0-1.8); Eosinophils # (Auto) 0.2 K/mm3 (0.0-0.4); Hematocrit 34.3 % (30.3-42.9); Hemoglobin 11.4 gm/dl (10.1-14.3); Lymphocytes # (Auto) 2.1 K/mm3 (1.2-5.4); Lymphocytes % (Auto) 35.9 % (13.4-35.0); Mean Corpuscular HGB Conc 33 % (30-34); Mean Corpuscular Volume 85 fl (79-97); Monocytes # (Auto) 0.4 K/mm3 (0.0-0.8); Monocytes % (Auto) 7.6 % (0.0-7.3); Platelet Count 225 K/mm3 (140-440); Red Blood Count 4.02 M/mm3 (3.65-5.03); Red Cell Distribution Width 13.7 % (13.2-15.2)
[2018-05-10 08:44] LABS: Creatine Kinase MB 5.5 ng/mL (0.0-4.0)
[2018-05-10 08:45] LABS: Calcium 8.6 mg/dL (8.4-10.2)
[2018-05-10] MEDS: AMARYL PO SCH (08:49)
--- NOTE | 2018-05-10 08:50 | XRay Report ---
AP CHEST: HISTORY: chest pain, status post PCI AP view of the chest demonstrates a normal mediastinal and cardiac contour with clear lungs and normal bony and soft tissue structures. IMPRESSION: Unremarkable AP chest.
[2018-05-10 08:59] LABS: Chol/HDL Ratio 2.8 %
[2018-05-10] MEDS: ZESTRIL PO SCH (09:58)
[2018-05-10] MEDS: COREG PO SCH (09:59)
[2018-05-10] MEDS ORDERED: PLAVIX PO SCH (10:00)
[2018-05-10] MEDS ORDERED: ALDACTONE PO SCH (10:00)
[2018-05-10] MEDS ORDERED: ESOMEPRAZOLE MAGNESIUM 20 MG PO SCH (10:00)
[2018-05-10] MEDS ORDERED: BABY ASPIRIN PO SCH (10:00)
[2018-05-10] MEDS ORDERED: THALITONE PO SCH (10:00)
[2018-05-10] MEDS ORDERED: PROTONIX PO SCH (10:00)
[2018-05-10 10:50] VITALS: BP 137/42
== END 2018-05-10 12:36 | disposition home or self-care (01) | DRG 246 ==
LOC: CATHLABREC 06:01 → 4A 09:59
PROVIDERS: ADMIT Internal Medicine; ATTEND Internal Medicine
PROC: 027034Z Dilation of Coronary Artery, One Artery with Drug-eluting Intraluminal Device, Percutaneous Approach (ICD-10-PCS; principal; 2018-05-09)
PROC: 4A023N7 Measurement of Cardiac Sampling and Pressure, Left Heart, Percutaneous Approach (ICD-10-PCS; 2018-05-09)
PROC: B2111ZZ Fluoroscopy of Multiple Coronary Arteries using Low Osmolar Contrast (ICD-10-PCS; 2018-05-09)
PROC: B2151ZZ Fluoroscopy of Left Heart using Low Osmolar Contrast (ICD-10-PCS; 2018-05-09)
DX: I25.110 Atherosclerotic heart disease of native coronary artery with unstable angina pectoris (principal); I50.33 Acute on chronic diastolic (congestive) heart failure; I11.0 Hypertensive heart disease with heart failure; K21.9 Gastro-esophageal reflux disease without esophagitis; E10.51 Type 1 diabetes mellitus with diabetic peripheral angiopathy without gangrene; E78.5 Hyperlipidemia, unspecified; Z90.710 Acquired absence of both cervix and uterus; Z79.84 Long term (current) use of oral hypoglycemic drugs; Z79.899 Other long term (current) drug therapy; Z79.82 Long term (current) use of aspirin
CPT/HCPCS: 36415; 71045; 80048; 80061; 82550; 82553; 82962; 84484; 85025; 85347; 85610; 85730; 92928; 93005; 93010; 93458; 96374; G0378; A9270-GY; C1725; C1769; C1874; C1887; C1894; C9600; J0360; J1644; J1815; J2250; J2405; J3010; J7030; J7040; Q9967

== ENCOUNTER 2019-12-11 12:43 | Emergency (ER) | payer MEDICARE ==
[2019-12-11 12:53] VITALS: BP 168/51
--- NOTE | 2019-12-11 13:15 | Emergency Department Report ---
Blank Doc - Documentation Documentation: 79-year-old female that presents with vaginal discharge, dysuria, itching and irritation. This initial assessment/diagnostic orders/clinical plan/treatment(s) is/are subject to change based on patient's health status, clinical progression and re- assessment by fellow clinical providers in the ED. Further treatment and workup at subsequent clinical providers discretion. Patient/guardians urged not to elope from the ED as their condition may be serious if not clinically assessed and managed. Initial orders include: 1- Patient sent to [facility] for further evaluation and treatment 2- UA
[2019-12-11 14:29] LABS: Bacteria,Urine 1+ /HPF (Negative); Bilirubin,Urine NEG (Negative); Blood,Urine SM (Negative); Color,Urine Yellow (Yellow); Mucus,Urine FEW /HPF; Urobilinogen,Urine < 2.0 mg/dL (<2.0)
--- NOTE | 2019-12-11 16:51 | Emergency Department Report ---
ED Female HPI - General Chief complaint: Urogenital-Female Stated complaint: VAGINAL INFECTION Time Seen by Provider: 12/11/19 13:15 Source: patient Mode of arrival: Ambulatory Limitations: No Limitations - History of Present Illness Initial comments: 79-year-old female presents to ED with complaint of vaginal infection. Patient states she has been having vaginal itching and burning. Patient states a few days ago she noticed blood on the tissue when she wiped. Denies any abdominal pain, fever, nausea or vomiting. 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 States she was given a prescription for fluconazole which helped her symptoms at that time, however they have returned. Patient states she does not have a regional liaison. -: week(s) (1) Location: labia Severity: moderate Quality: burning, other (Itching) Improves with: none Worsens with: urination Associated Symptoms: vaginal bleeding, dysuria. denies: vaginal discharge, nausea/vomiting, fever/chills, hematuria - Related Data Home Medications Medication Instructions Recorded Confirmed Last Taken Chlorthalidone 25 mg PO DAILY 06/29/17 05/09/18 05/08/18 25 mg Enalapril Maleate [Vasotec] 20 mg PO BID 06/29/17 05/09/18 05/08/18 20 mg Glimepiride [Amaryl] 4 mg PO BID 06/29/17 05/09/18 05/08/18 4 mg Insulin Aspart (Nf) [NovoLOG 12 - 17 units SQ TID 06/29/17 05/09/18 05/08/18 Flexpen] 15 units Spironolactone [Aldactone] 25 mg PO QDAY 06/29/17 05/09/18 05/08/18 25 mg AtorvaSTATin [Lipitor] 20 mg PO DAILY 05/09/18 05/09/18 05/08/18 20 mg Esomeprazole Magnesium [Heartburn 20 mg PO DAILY 05/09/18 05/09/18 05/08/18 Treatment] Insulin Glargine,Hum.rec.anlog 48 units SQ HS 05/09/18 05/09/18 05/08/18 [Lantus] carvediloL [Coreg] 6.25 mg PO BID 05/09/18 05/09/18 05/08/18 Previous Rx's Medication Instructions Recorded Last Taken Type Aspirin [Aspirin BABY CHEW TAB] 81 mg PO QDAY tab.chew 06/30/17 05/08/18 Rx AtorvaSTATin [Lipitor] 20 mg PO QHS tablet 05/10/18 Unknown Rx Clopidogrel [Plavix] 75 mg PO QDAY tablet 05/10/18 Unknown Rx Fluconazole (Nf) [Diflucan TAB] 150 mg PO ONCE #1 tablet 12/11/19 Unknown Rx Nitrofurantoin Blaine/M-Cryst 100 mg PO Q12HR #14 capsule 12/11/19 Unknown Rx [Macrobid CAP] Allergies Allergy/AdvReac Type Severity Reaction Status Date / Time No Known Allergies Allergy Verified 05/09/18 07:00 ED Review of Systems ROS: Stated complaint: VAGINAL INFECTION Other details as noted in HPI Comment: All other systems reviewed and negative Constitutional: denies: chills, fever Gastrointestinal: denies: abdominal pain, nausea, vomiting Genitourinary: dysuria, other (Reports vaginal itching). denies: discharge ED Past Medical Hx - Past Medical History Previous Medical History?: Yes Hx Hypertension: Yes Hx Congestive Heart Failure: Yes Hx Diabetes: Yes Hx GERD: Yes - Surgical History Past Surgical History?: Yes Additional Surgical History: tubiligation, stent LLL - Social History Smoking Status: Never Smoker Substance Use Type: None - Medications Home Medications: Home Medications Medication Instructions Recorded Confirmed Last Taken Type Chlorthalidone 25 mg PO DAILY 06/29/17 05/09/18 05/08/18 History 25 mg Enalapril Maleate [Vasotec] 20 mg PO BID 06/29/17 05/09/18 05/08/18 History 20 mg Glimepiride [Amaryl] 4 mg PO BID 06/29/17 05/09/18 05/08/18 History 4 mg Insulin Aspart (Nf) [NovoLOG 12 - 17 units SQ TID 06/29/17 05/09/18 05/08/18 History Flexpen] 15 units Spironolactone [Aldactone] 25 mg PO QDAY 06/29/17 05/09/18 05/08/18 History 25 mg Aspirin [Aspirin BABY CHEW TAB] 81 mg PO QDAY tab.chew 06/30/17 05/09/18 05/08/18 Rx AtorvaSTATin [Lipitor] 20 mg PO DAILY 05/09/18 05/09/1805/08/19 History 20 mg Esomeprazole Magnesium [Heartburn 20 mg PO DAILY 05/09/18 05/09/18 05/08/18 History Treatment] Insulin Glargine,Hum.rec.anlog 48 units SQ HS 05/09/18 05/09/18 05/08/18 History [Lantus] carvediloL [Coreg] 6.25 mg PO BID 05/09/18 05/09/18 05/08/18 History AtorvaSTATin [Lipitor] 20 mg PO QHS tablet 05/10/18 Unknown Rx Clopidogrel [Plavix] 75 mg PO QDAY tablet 05/10/18 Unknown Rx Fluconazole (Nf) [Diflucan TAB] 150 mg PO ONCE #1 tablet 12/11/19 Unknown Rx Nitrofurantoin Blaine/M-Cryst 100 mg PO Q12HR #14 capsule 12/11/19 Unknown Rx [Macrobid CAP] ED Physical Exam - General Limitations: No Limitations General appearance: alert, in no apparent distress - Head Head exam: Present: atraumatic, normocephalic - Eye Eye exam: Present: normal appearance, EOMI - ENT ENT exam: Present: mucous membranes moist - Neck Neck exam: Present: normal inspection - Respiratory Respiratory exam: Present: normal lung sounds bilaterally. Absent: respiratory distress - Cardiovascular Cardiovascular Exam: Present: regular rate, normal rhythm - GI/Abdominal GI/Abdominal exam: Present: soft. Absent: distended, tenderness - External exam: Present: normal external exam. Absent: bleeding Speculum exam: Absent: vaginal bleeding - Extremities Exam Extremities exam: Present: normal inspection - Skin Skin exam: Present: warm, dry, intact, normal color ED Course Vital Signs 12/11/19 12:53 Temperature 98.7 F Pulse Rate 67 Respiratory 16 Rate Blood Pressure 168/51 [Right] O2 Sat by Pulse 98 Oximetry ED Medical Decision Making - Medical Decision Making Patient advised to follow-up with gynecology. Will give prescription for treatment of yeast infection and UTI. Critical care attestation.: If time is entered above; I have spent that time in minutes in the direct care of this critically ill patient, excluding procedure time. ED Disposition Clinical Impression: Emily vaginitis, UTI (urinary tract infection) Disposition: TO HOME OR SELFCARE Is pt being admited?: No Condition: Stable Instructions: Urinary Tract Infection in Women (ED), Vulvovaginal Candidiasis (ED) Prescriptions: Fluconazole (Nf) [Diflucan TAB] 150 mg PO ONCE #1 tablet Nitrofurantoin Blaine/M-Cryst [Macrobid CAP] 100 mg PO Q12HR #14 capsule Referrals: PRIMARY CARE, [Primary Care Provider] - 3-5 Days ANTHONY OLMOS MD [Staff Physician] - 3-5 Days Time of Disposition: 16:55
== END 2019-12-11 16:56 | disposition home or self-care (01) ==
LOC: ED 12:43
DX: B37.3 Candidiasis of vulva and vagina (principal); N39.0 Urinary tract infection, site not specified; I11.0 Hypertensive heart disease with heart failure; I50.9 Heart failure, unspecified; E11.9 Type 2 diabetes mellitus without complications; K21.9 Gastro-esophageal reflux disease without esophagitis; Z79.899 Other long term (current) drug therapy; Z98.890 Other specified postprocedural states; Z98.51 Tubal ligation status
CPT/HCPCS: 81001; 87086; 99283